=== PATIENT | male | born 1980 | race African-American/Black ===

== ENCOUNTER 2019-05-12 21:48 | Emergency (ER) | payer OTHER ==
[~2019-05-12] VITALS: Ht 172.7 cm; Wt 80.0 kg
[2019-05-12] MEDS ORDERED: NS 1,000 ML IV SCH (22:09)
[2019-05-12] MEDS ORDERED: ASPIRIN 81 MG CHEW TABLET PO ONE (22:15)
[2019-05-12] MEDS ORDERED: GI COCKTAIL 50ML BTL(HYOSCYAMINE/MAALOX/LIDOCAINE VISCOUS)(1:3:1) PO ONE (22:15)
[2019-05-12 22:28] LABS: BASO % 0.3 % (0.0-1.0); EOS # 0.2 10^3/uL (0.0-0.50); EOS % 1.8 % (0.0-3.0); HEMATOCRIT 39.1 % (42.0-52.0); HEMOGLOBIN 13.3 g/dl (13.5-17.5); LYMPH # 3.6 10^3/uL (1.5-4.5); LYMPH % 40.8 % (24.0-44.0); MONO # 0.5 10^3/uL (0.0-0.8); MONO % 5.5 % (0.0-5.0); NEUTROPHILS # 4.5 10^3/uL (1.8-7.7); NEUTROPHILS % 51.5 % (36.0-66.0); PLATELET COUNT, AUTOMATED 271 10^3/uL (150-450); RED BLOOD COUNT 4.16 10^6/uL (4.30-6.10); WHITE BLOOD COUNT 8.8 10^3/uL (4.0-10.0)
[2019-05-12 22:49] LABS: PROTHROMBIN TIME 12.9 SECONDS (11.8-14.0)
[2019-05-12 23:02] LABS: ALBUMIN 3.6 GM/DL (3.2-5.2); ALT/SGPT 36 U/L (12-78); BILIRUBIN,DIRECT < 0.1 MG/DL (0.0-0.2); BILIRUBIN,TOTAL 0.1 MG/DL (0.2-1.0); BLOOD UREA NITROGEN 10 MG/DL (7-18); CALCIUM LEVEL 8.1 MG/DL (8.5-10.1); CARBON DIOXIDE LEVEL 21 MEQ/L (21-32); CHLORIDE LEVEL 109 MEQ/L (98-107); CK-MB VALUE MASS < 1.0 NG/ML (<3.6); CPK CREATINE PHOSPHOKINASE 150 U/L (39-308); CREATININE FOR GFR 1.04 MG/DL (0.70-1.30); GLOMERULAR FILTRATION RATE > 60.0 (>60); GLUCOSE, FASTING 113 MG/DL (70-100); LIPASE 169 U/L (73-393); MB/CK RELATIVE INDEX 0.67 (< OR =4); POTASSIUM SERUM 3.5 MEQ/L (3.5-5.1); SODIUM LEVEL 141 MEQ/L (136-145); TOTAL PROTEIN 6.8 GM/DL (6.4-8.2); TROPONIN I < 0.02 NG/ML (< 0.10)
[2019-05-12] MEDS ORDERED: PROT1TAB2 PO (23:29)
[2019-05-12 23:30] VITALS: BP 105/66
--- NOTE | 2019-05-12 23:30 | REP ---
Clinical: Acute chest pain . Comparison: None . Findings: The mediastinum and cardiac silhouette are stable and within normal limits for portable technique. The lung dubose are clear without acute consolidation, effusion, or pneumothorax. Skeletal structures are intact. Impression: No acute cardiopulmonary process appreciated. Electronically Signed by Paulino Mcgraw MD 05/12/2019 11:22 P
--- NOTE | 2019-05-12 23:58 | ECGEPIP ---
[place] - ED Test Date: 2019-05-12 Pat Name: MICHA BAUTISTA Department: Room: - Gender: Male Medical Field Representative: MIAH : 1980 Requested By: RENA OSCAR Order Number: [id number] Reading MD: Derik Lerma Measurements Intervals Rogers Rate: 86 P: 33 KS: 143 QRS: 63 QRSD: 86 T: 44 QT: 360 QTc: 433 Interpretive Statements SINUS RHYTHM Nonspecific ST-T wave abnormalities Consider early repolarization, pericarditis or ischemia Comparison tracing not on file Electronically Signed on 05-12-2019 23:58:19 EDT by Derik eLrma
== END 2019-05-12 23:40 | disposition home or self-care (01) ==
LOC: M ED 21:48
DX: R07.89 Other chest pain (principal); Z88.8 Allergy status to other drugs, medicaments and biological substances